=== PATIENT | female | born 1990 | race African-American/Black ===

== ENCOUNTER 2017-08-16 19:11 | Emergency (ER) | payer MEDICAID ==
[~2017-08-16] VITALS: Ht 177.8 cm; Wt 61.4 kg
[2017-08-16] MEDS ORDERED: HYDROCODONE/ACETAMINOPHEN 5-325 MG TABLET PO ONE (20:15)
[2017-08-16 21:16] VITALS: BP 138/88
== END 2017-08-16 21:18 | disposition home or self-care (01) ==
LOC: EMS 19:12
DX: S90.111A Contusion of right great toe without damage to nail, initial encounter (principal); W45.8XXA Other foreign body or object entering through skin, initial encounter; Y93.89 Activity, other specified; Y92.89 Other specified places as the place of occurrence of the external cause; Y99.8 Other external cause status
CPT/HCPCS: 99284

== ENCOUNTER 2017-08-28 01:59 | Emergency (ER) | payer MEDICAID ==
[~2017-08-28] VITALS: Ht 177.8 cm; Wt 59.1 kg
[2017-08-28] MEDS ORDERED: ALBUTEROL SULFATE 2.5 MG/0.5 ML NEB SOLUTION NEB ONE (02:45)
[2017-08-28] MEDS ORDERED: IPRATROPIUM BROMIDE 0.5 MG/2.5 ML NEB SOLUTION NEB ONE (02:45)
[2017-08-28 03:27] VITALS: BP 141/75
== END 2017-08-28 03:52 | disposition home or self-care (01) ==
LOC: EMS 02:00
DX: J06.9 Acute upper respiratory infection, unspecified (principal); F17.200 Nicotine dependence, unspecified, uncomplicated
CPT/HCPCS: 71010; 94640; 99283; 99406; J7613

== ENCOUNTER 2019-04-11 12:58 | Emergency (ER) | payer MEDICAID ==
[~2019-04-11] VITALS: Ht 175.3 cm; Wt 63.6 kg
[2019-04-11] MEDS ORDERED: IBUPROFEN 800 MG TABLET PO ONE (13:15)
[2019-04-11] MEDS ORDERED: PredniSONE 20 MG TABLET PO ONE (13:15)
[2019-04-11 14:06] VITALS: BP 121/74
== END 2019-04-11 14:08 | disposition home or self-care (01) ==
LOC: EMS 12:59
DX: R21 Rash and other nonspecific skin eruption (principal); M25.531 Pain in right wrist; F17.210 Nicotine dependence, cigarettes, uncomplicated; F12.90 Cannabis use, unspecified, uncomplicated
CPT/HCPCS: 81025; 99283; 99406; J7512

== ENCOUNTER 2019-05-19 11:49 | Emergency (ER) | payer MEDICAID ==
[~2019-05-19] VITALS: Ht 177.8 cm; Wt 59.1 kg
[2019-05-19 15:50] VITALS: BP 115/70
== END 2019-05-19 15:56 | disposition home or self-care (01) ==
LOC: EMS 11:51
DX: G56.03 Carpal tunnel syndrome, bilateral upper limbs (principal); F17.210 Nicotine dependence, cigarettes, uncomplicated; F12.90 Cannabis use, unspecified, uncomplicated

== ENCOUNTER 2019-09-12 02:50 | Emergency (ER) | payer MEDICAID ==
[~2019-09-12] VITALS: Ht 177.8 cm; Wt 63.6 kg
[2019-09-12 04:50] VITALS: BP 125/81
[2019-09-12] MEDS ORDERED: LIDOCAINE/PF 1% 5 ML VIAL ONE (05:39)
[2019-09-12] MEDS ORDERED: PENICILLIN G BENZATHINE LA 2,400,000 UNITS/4 ML SYRINGE IM ONE (05:45)
[2019-09-12] MEDS ORDERED: CefTRIAXone SODIUM 1 GM/VIAL IM ONE (05:45)
[2019-09-12] MEDS ORDERED: AZITHROMYCIN 250 MG TABLET PO ONE (05:45)
== END 2019-09-12 06:09 | disposition home or self-care (01) ==
LOC: EMS 02:53
DX: Z20.2 Contact with and (suspected) exposure to infections with a predominantly sexual mode of transmission (principal); F12.90 Cannabis use, unspecified, uncomplicated
CPT/HCPCS: 96372; 99283; J0561; J0696; J2001

== ENCOUNTER 2020-08-11 05:07 | Emergency (ER) | payer MEDICAID ==
[~2020-08-11] VITALS: Ht 177.8 cm; Wt 135.0 kg
[2020-08-11 05:19] VITALS: BP 125/76
[2020-08-11] MEDS ORDERED: LIDOCAINE/PF 1% 2 ML VIAL IM ONE (06:30)
[2020-08-11] MEDS ORDERED: AZITHROMYCIN 500 MG TABLET PO ONE (06:30)
[2020-08-11] MEDS ORDERED: PENICILLIN G BENZATHINE LA 2,400,000 UNITS/4 ML SYRINGE IM ONE (06:30)
[2020-08-11] MEDS ORDERED: MetroNIDAZOLE 500 MG TABLET PO ONE (06:30)
[2020-08-11] MEDS ORDERED: CefTRIAXone SODIUM 1 GM/VIAL IM ONE (06:30)
== END 2020-08-11 07:50 | disposition home or self-care (01) ==
LOC: EMS 05:08
DX: A64 Unspecified sexually transmitted disease (principal); N89.8 Other specified noninflammatory disorders of vagina; F17.200 Nicotine dependence, unspecified, uncomplicated; F12.90 Cannabis use, unspecified, uncomplicated
CPT/HCPCS: 81025; 84703; 87491; 87591; 96372; 99284; J0561; J0696; J3490

== ENCOUNTER 2021-04-07 07:06 | Emergency (ER) | payer MEDICAID ==
[~2021-04-07] VITALS: Ht 177.8 cm; Wt 63.6 kg
[2021-04-07] MEDS ORDERED: ONDANSETRON HCL 4 MG/2 ML VIAL IVP ONE (07:30)
[2021-04-07] MEDS ORDERED: PB/HYOSCY/ATR/SCOP/LIDO/MAALOX 55 ML BOTTLE PO ONE (07:30)
[2021-04-07] MEDS ORDERED: SODIUM CHLORIDE 0.9% 1,000 ML IV ONE (07:30)
[2021-04-07] MEDS ORDERED: DiphenhydrAMINE HCL 50 MG/ML VIAL IVP ONE (07:30)
[2021-04-07 08:20] LABS: BASOPHILS % (AUTO) 0.3 % (0.0-2.0); EOSINOPHILS % (AUTO) 1.1 % (1.0-6.0); HEMATOCRIT 33.7 % (36-46); HEMOGLOBIN 11.1 g/dL (12.0-16.0); LYMPHOCYTES # (AUTO) 1.2 K/uL (1.0-4.8); LYMPHOCYTES % (AUTO) 12.7 % (22.0-44.0); MEAN CORPUSCULAR HEMOGLOBIN 30.2 pg (26.0-34.0); MEAN CORPUSCULAR VOLUME 91 fL (80-100); MONOCYTES # (AUTO) 0.1 K/uL (0.1-1.0); MONOCYTES % (AUTO) 1.5 % (2.0-9.0); NEUTROPHILS # (AUTO) 8.2 K/uL (1.8-7.7); NEUTROPHILS % (AUTO) 84.4 % (40.0-70.0); PLATELET COUNT (AUTO) 122 K/uL (150-450); RED BLOOD CELL COUNT(AUTO) 3.69 MIL/uL (4.00-5.20); RED CELL DISTRIBUTION WIDTH 14.6 % (11.5-14.5)
[2021-04-07 08:29] LABS: ANION GAP 10 mmol/L (8-16); CALCIUM, TOTAL 8.4 mg/dL (8.8-10.5); CARBON DIOXIDE 26 mmol/L (22-29); CHLORIDE 103 mmol/L (98-107); CREATININE 0.86 mg/dL (0.60-1.30); GLOMERULAR FILTR. RATE CALC > 60 mL/min (>60); GLUCOSE,RANDOM 126 mg/dL (70-110); POTASSIUM 3.4 mmol/L (3.5-5.1); SODIUM SERUM 139 mmol/L (136-145); UREA NITROGEN, BLOOD 17 mg/dL (7-18)
[2021-04-07 08:44] LABS: ALANINE AMINOTRANSFERASE 97 U/L (12-78); ALBUMIN 3.4 g/dL (3.4-5.0); ALKALINE PHOSPHATASE 66 U/L (46-116); ASPARTATE AMINOTRANSFERASE 174 U/L (15-37); BILIRUBIN,TOTAL 0.5 mg/dL (0.1-1.0); HCG,QUANTITATIVE 1 mIU/mL (0-6); LIPASE 49 U/L (73-393); TOTAL PROTEIN, SERUM 6.8 g/dL (6.4-8.2)
[2021-04-07] MEDS ORDERED: MetroNIDAZOLE 250 MG TABLET PO ONE (10:15)
[2021-04-07] MEDS ORDERED: CIPROFLOXACIN HCL 250 MG TABLET PO ONE (10:15)
[2021-04-07 10:45] VITALS: BP 133/85
== END 2021-04-07 10:47 | disposition home or self-care (01) ==
LOC: EMS 07:09
DX: K52.9 Noninfective gastroenteritis and colitis, unspecified (principal); F17.200 Nicotine dependence, unspecified, uncomplicated; F12.90 Cannabis use, unspecified, uncomplicated
CPT/HCPCS: 36415; 74176; 80053; 83690; 84702; 85025; 96361; 96374; 96375; 99284; J1200; J2405

== ENCOUNTER 2023-07-11 14:52 | Emergency (ER) | payer MEDICAID ==
[~2023-07-11] VITALS: Ht 177.8 cm; Wt 80.0 kg
[~2023-07-11 14:52] MED LIST: CIPR500S5 PO; METR500 PO; ONDA-104 PO
[2023-07-11 14:54] VITALS: BP 149/87; PULSE 112; RESP 16; TEMP 98.4
[2023-07-11] MEDS ORDERED: SODIUM CHLORIDE 0.9% 1,000 ML IV ONE (17:30)
[2023-07-11] MEDS ORDERED: ONDANSETRON HCL 4 MG/2 ML VIAL IVP ONE (17:30)
[2023-07-11 17:48] LABS: BASOPHILS % (AUTO) 0.3 % (0.0-2.0); EOSINOPHILS % (AUTO) 2.4 % (1.0-6.0); HEMATOCRIT 38.5 % (36-46); LYMPHOCYTES # (AUTO) 1.8 K/uL (1.0-4.8); LYMPHOCYTES % (AUTO) 24.2 % (22.0-44.0); MEAN CORPUSCULAR HGB CONC 33.6 G/dL (31.0-37.0); MEAN CORPUSCULAR VOLUME 92 fL (80-100); MONOCYTES # (AUTO) 0.5 K/uL (0.1-1.0); MONOCYTES % (AUTO) 6.3 % (2.0-9.0); NEUTROPHILS # (AUTO) 5.1 K/uL (1.8-7.7); NEUTROPHILS % (AUTO) 66.8 % (40.0-70.0); PLATELET COUNT (AUTO) 186 K/uL (150-450); RED BLOOD CELL COUNT(AUTO) 4.18 MIL/uL (4.00-5.20); RED CELL DISTRIBUTION WIDTH 13.8 % (11.5-14.5); WHITE BLOOD COUNT (AUTO) 7.6 K/uL (4.5-11.0)
[2023-07-11 17:57] LABS: ANION GAP 11 mmol/L (8-16); CALCIUM, TOTAL 9.4 mg/dL (8.8-10.5); CARBON DIOXIDE 25 mmol/L (22-29); CHLORIDE 97 mmol/L (98-107); CREATININE 0.67 mg/dL (0.60-1.30); GLOMERULAR FILTR. RATE CALC > 60 mL/min (>60); GLUCOSE,RANDOM 84 mg/dL (70-110); POTASSIUM 4.4 mmol/L (3.5-5.1); SODIUM SERUM 133 mmol/L (136-145); UREA NITROGEN, BLOOD 10 mg/dL (7-18)
[2023-07-11 18:03] LABS: ALANINE AMINOTRANSFERASE 38 U/L (12-78); ALBUMIN 3.2 g/dL (3.4-5.0); ALKALINE PHOSPHATASE 77 U/L (46-116); ASPARTATE AMINOTRANSFERASE 32 U/L (15-37); BILIRUBIN,TOTAL 0.3 mg/dL (0.1-1.0); TOTAL PROTEIN, SERUM 8.3 g/dL (6.4-8.2)
[2023-07-11 18:04] LABS: ALCOHOL, BLOOD (SERUM) < 3 mg/dL (0-10)
[2023-07-11 18:06] LABS: TROPONIN I-HIGH SENSITIVITY Less Than 4 ng/L (<51)
== END 2023-07-11 18:30 | disposition left against medical advice (07) ==
LOC: EMS 14:54
DX: O26.892 Other specified pregnancy related conditions, second trimester (principal); R10.30 Lower abdominal pain, unspecified; F32.A Depression, unspecified; F12.90 Cannabis use, unspecified, uncomplicated; Z98.890 Other specified postprocedural states; Z3A.18 18 weeks gestation of pregnancy
CPT/HCPCS: 99284; 76801; 80053; 84484; 84703; 85025; 36415; G0480